=== PATIENT | male | born 1950 | race Caucasian/White ===

== ENCOUNTER 2019-04-16 15:56 | Emergency (ER) | payer MEDICARE, MEDICAID ==
[~2019-04-16] VITALS: Ht 175.3 cm; Wt 81.6 kg
[2019-04-16 16:13] VITALS: BP 167/105
--- NOTE | 2019-04-16 16:38 | ER.PDOC ---
General Chief Complaint: Requesting Medical Care Stated Complaint: BACK PAIN, FEVER Time seen by MD: 16:28 Source: patient, family Exam Limitations: no limitations History of Present Illness Initial Comments Pt not feeling well for several days, concerned about his BP, but, also because he had right sided chest pain, radiating to back. Fever, cough Timing/Duration: 1 week Severity: moderate Activities at Onset: none Prior Episodes/Possible Cause: no prior episodes Modifying Factors: improves with lying down Associated Symptoms: chest pain, cough Allergies: Coded Allergies: No Known Drug Allergies (Verified Allergy, Unknown, 04/16/19) Review of Systems Constitutional: see HPI, fever EENTM: no symptoms reported Respiratory: see HPI Cardiovascular: see HPI Gastrointestinal: no symptoms reported Genitourinary: no symptoms reported Musculoskeletal: no symptoms reported Skin: no symptoms reported Psychiatric/Neurological: no symptoms reported Endocrine: no symptoms reported Hematologic/Lymphatic: no symptoms reported Physical Exam General Appearance: No Apparent Distress, WD/WN HEENT: PERRL/EOMI, Normal ENT Inspection, TMs Normal, Pharynx Normal Neck: Non-Tender, Full Range of Motion, Supple, Normal Inspection Respiratory: chest non-tender, lungs clear, normal breath sounds, no respiratory distress, no accessory muscle use, rhonchi (scattered) Cardiovascular: Normal Peripheral Pulses, No Edema, No Gallop, Irregularly Irregular Gastrointestinal: Normal Bowel Sounds, No Organomegaly, No Pulsatile Mass, Non Tender, Soft, Other (There is significan CVAT on right) Extremities: Normal Range of Motion, Non-Tender, Normal Inspection, No Pedal Edema, No Calf Tenderness, Normal Capillary Refill Neurologic/Psychiatric: ground equipment mechanic II-XII NML as Tested, No Motor/Sensory Deficits, Alert, Normal Mood/Affect, Oriented x 3 Skin: Normal Color, Warm/Dry Lymphatic: No Adenopathy Results/Orders Results/Orders Vital Signs Date Time Temp Pulse Resp B/P (MAP) Pulse Ox O2 Delivery O2 Flow Rate FiO2 04/16/19 19:45 98.3 90 16 170/98 (122) 94 Room Air 04/16/19 18:45 98.3 132 16 171/113 (132) 94 Room Air 04/16/19 16:44 98.3 101 16 167/105 (125) 95 Room Air 04/16/19 16:13 98.3 101 16 04/16/19 16:13 98.3 101 18 95 Room Air Laboratory Tests Test 04/16/19 16:32 04/16/19 16:54 04/16/19 17:15 Blood Gas Sample Site RT BRACIAL ARTERY Blood pH 7.476 (7.350-7.450) Blood Gas PCO2 30.3 mmHg (35.0-45.0) L Blood Gas PO2 69.3 mmHg (80.0-100.0) L Blood Gas HCO3 21.9 mmol/L (22.0-26.0) L Blood Gas Base Excess -0.7 mmol/L (-2.0-2.0) Lauri Test N/A Arterial Blood Oxygen Saturation 94.5 % (94.0-97.00) Deoxyhemoglobin 5.4 % (0.0-5.0) H Carboxyhemoglobin 1.8 % (0.0-3.9) Methemoglobin 0.3 % (0.00-5.0) Total Hemoglobin 14.0 % (12.0-17.8) Total Oxygen Concentration 18.2 % (13.5-17.5) H Lactic Acid (Blood Gas) 1.6 mmol/1 (0.50-2.0) Blood Gas Temperature 37 Oxygen Delivery Method RA FiO2 21 % (20-101) Bicarbonate 22.8 mmol/L (23-27) L White Blood Count 14.4 10^3/uL (4.5-11.0) H Red Blood Count 4.05 10^6/uL (4.50-5.90) L Hemoglobin 13.2 g/dL (13.9-16.3) L Hematocrit 38.4 % (37.0-53.0) Mean Corpuscular Volume 94.8 fL (78-100) Mean Corpuscular Hemoglobin 32.6 pg (26-34) Mean Corpuscular Hemoglobin Concent 34.4 g/dL (33-37) Red Cell Distribution Width 12.8 % (11.5-14.5) Platelet Count 180 10^3/uL (150-400) Mean Platelet Volume 11.2 fL (7.8-11.0) H Neutrophils (%) (Auto) 71.8 % (41.0-85.0) Lymphocytes (%) (Auto) 10.2 % (24.0-44.0) L Monocytes (%) (Auto) 16.6 % (5.0-12.0) H Neutrophils # (Auto) 10.3 10^3/uL (1.8-7.7) H Lymphocytes # (Auto) 1.5 10^3/uL (1.0-4.8) Monocytes # (Auto) 2.4 10^3/uL (0.3-0.8) H Absolute Immature Granulocyte (auto 0.03 10^3 u/L (0-2) Immature Granulocytes % 0.20 % (0.00-0.50) Eosinophils % 0.9 % (0.0-5.0) Basophils % 0.3 % (0.0-0.2) H Basophils # 0.1 10^3/uL (0.0-0.1) Eosinophil Count 0.1 10^3/uL (0.0-0.2) Prothrombin Time 11.2 SEC (9.4-11.5) Prothrombin Time INR (Non-Therap) 1.1 Activated Partial Thromboplast Time 28.5 SEC (24.67-30.72) Sodium Level 139 mmol/L (132-145) Potassium Level 4.1 mmol/L (3.6-5.2) Chloride Level 105.0 mmol/L (96-109) Carbon Dioxide Level 23.4 mmol/L (20.0-32) Anion Gap 14.7 Blood Urea Nitrogen 15 mg/dL (7-18) Creatinine 0.84 mg/dL (0.59-1.40) Estimated GFR () 109.6 (>/=60) BUN/Creatinine Ratio 17.0 Glucose Level 95 mg/dL (70-110) Calcium Level 8.6 mg/dL (8.4-10.5) Total Bilirubin 1.9 mg/dL (0.2-1.0) H Aspartate Amino Transferase (AST) 18 U/L (0-35) Alanine Aminotransferase (ALT) 21 U/L (12-78) Alkaline Phosphatase 108 U/L (50-136) Total Creatine Kinase 83 U/L (39-308) Troponin I < 0.02 ng/mL (0.00-0.05) Pro-B-Type Natriuretic Peptide 2466 pg/mL (0-125) H Total Protein 7.1 g/dL (6.4-8.2) Albumin 3.0 g/dL (3.4-5.0) L Globulin 4.1 Differential Total Cells Counted 100 #CELLS Segmented Neutrophils 75 % (31-76) Lymphocytes 10 % (25-36) L Monocytes 13 % (3-9) H Absolute Eosinophils (Manual) 2 % (1-4) Platelet Estimate ADEQUATE Platelet Morphology NORMAL Blood Morphology Comment NORMAL MORPHOLOGY Progress Progress I assumed care of pt at shift change from Dr Joy , labs and CT noted , will transfer to [facility] @2017 pt accepted @ [facility] by Dr Pedro Saunders EKG/XRAY/CT/US EKG: rhythm (Afib HR 105) XRAY: chest (widened mediastinum ) CT Comments: 4.1 cm Thoracic aneurysm , no disscetion Departure Time of Disposition: 20:23 Disposition: 70 DISC/XFER TO [facility] Impression: Primary Impression: Atrial fibrillation Additional Impression: Thoracic aortic aneurysm without rupture Condition: Stable Referrals: PCP,UNKNOWN (PCP) PRIMARY CARE PROVIDER Duration or Time Spent with Pa: 10 mins Problem Qualifiers Primary Impression: Atrial fibrillation Atrial fibrillation type: unspecified Qualified Codes: I48.91 - Unspecified atrial fibrillation JOVANI JOY MD Apr 16, 2019 16:37 VU MONCADA MD Apr 16, 2019 20:27
[2019-04-16 16:44] VITALS: BP 167/105
--- NOTE | 2019-04-16 16:50 | PCM.EKG ---
[facility] Test Date: 2019-04-16 Test Time: 16:44:55 Pat Name: NADIR DAVIS Department: Patient ID: [facility]-[id number] Room: Gender: M Naturopathic Physician: SHARRI : [id number] Requested By: CHRIS JOY Order Number: [id number] Reading MD: Chris Joy Measurements Intervals [place] Rate: 105 P: SC: QRS: -38 QRSD: 92 T: 14 QT: 304 QTc: 401 Interpretive Statements Atrial fibrillation Left axis deviation Nonspecific ST abnormality, probably digitalis effect Abnormal ECG No previous ECG available for comparison Electronically Signed On 04-16-2019 18:57:37 CDT by Chris Joy Please click the below link to view image of tracing.
[2019-04-16 16:57] LABS: ABG PCO2 30.3 mmHg (35.0-45.0); ABG PH 7.476 (7.350-7.450); BE(B) -0.7 mmol/L (-2.0-2.0); HCO3act 21.9 mmol/L (22.0-26.0); pO2 69.3 mmHg (80.0-100.0)
[2019-04-16 17:03] LABS: BASOPHIL # 0.1 10^3/uL (0.0-0.1); BASOPHIL % 0.3 % (0.0-0.2); EOSINOPHIL # 0.1 10^3/uL (0.0-0.2); EOSINOPHIL % 0.9 % (0.0-5.0); LYMPHOCYTES # 1.5 10^3/uL (1.0-4.8); LYMPHOCYTES % 10.2 % (24.0-44.0); MEAN CORP HGB 32.6 pg (26-34); MONOCYTES # 2.4 10^3/uL (0.3-0.8); MONOCYTES % 16.6 % (5.0-12.0); NEUTROPHIL # 10.3 10^3/uL (1.8-7.7); NEUTROPHILS % 71.8 % (41.0-85.0); RED CELL DISTRIBUTION WIDTH 12.8 % (11.5-14.5)
[2019-04-16 17:33] LABS: ALANINE AMINOTRANSFERASE(ML) 21 U/L (12-78); ALKALINE PHOSPHATASE 108 U/L (50-136); ASPARTATE AMINO TRANSFERASE 18 U/L (0-35); CALCIUM 8.6 mg/dL (8.4-10.5); CARBON DIOXIDE 23.4 mmol/L (20.0-32); GLUCOSE 95 mg/dL (70-110)
--- NOTE | 2019-04-16 17:43 | DIREP ---
PROCEDURE:CHEST 1 VIEW COMPARISON:None. INDICATIONS:Lateral chest pain FINDINGS: LUNGS/PLEURA:Possible atelectasis of the right middle lobe. Small right pleural fluid. No pneumothorax. VASCULATURE:Unremarkable pulmonary vasculature. CARDIAC:No cardiac silhouette abnormality or cardiomegaly. MEDIASTINUM:Widened mediastinum, could be related to tortuosity of the thoracic aorta although underlying aneurysm is not excluded. Atherosclerotic calcifications within the thoracic aorta. BONES:No fracture or visible bony lesion. OTHER:Negative. CONCLUSION: 1. Widened mediastinum, may be related to tortuosity of the thoracic aorta but consider CTA chest (with IV contrast) for further characterization. 2. Small right pleural fluid. 3. Possible atelectasis of the right middle lobe. Dictated by: Linh Enamorado MD on 04/16/2019 at 05:38 PM
--- NOTE | 2019-04-16 18:23 | NUR ---
DISMISSAL PT DISCHARGED IN STABLE CONDITION WITH DAUGHTER. PAIN RATED A 5. PT ABLE TO LIFT ARM AND MOVE IT AROUND. Addendum: 04/16/19 at 1833 by SHAKEEL PREVIOUS NOTE DONE ON WRONG
[2019-04-16 18:45] VITALS: BP 171/113
[2019-04-16 19:14] LABS: EOSINOPHIL 2 % (1-4); LYMPHOCYTE 10 % (25-36); MONOCYTE 13 % (3-9); SEGMENTED NEUTROPHILS 75 % (31-76)
--- NOTE | 2019-04-16 19:20 | DIREP ---
PROCEDURE:CTA CHEST COMPARISON:None. INDICATIONS:Widened mediastinum, CP TECHNIQUE:Post contrast axial images through the chest with multiplanar MIP/3D reconstructions. FINDINGS: PULMONARY ARTERIES:Patent. LUNGS:Mild peripheral ground-glass and interlobular septal thickening may be related to passive atelectasis from the pleural fluid or underlying structural lung disease. CARDIAC:Normal size heart and normal pulmonary vascularity. RV:LV ratio (norm <0.9): Not applicable in the absence of pulmonary embolism. THYROID:Normal. THORACIC AORTA:Ascending aorta is aneurysmal measuring 4.1 cm. The proximal descending thoracic aorta measures 3.1 cm, aneurysmal. Mid descending thoracic aorta measures 2.5 cm and distal descending thoracic aorta measures 2.7 cm. No dissection. MEDIASTINUM:Enlarged paratracheal lymph node measuring 1.3 cm 2/4R, shotty paratracheal lymph nodes 2R/L. Enlarged AP window nodes measuring 1.1 cm. Enlarged sub carinal lymph node measuring 1.5 cm. Right hilar lymph nodes measuring 1 1 cm. PLEURA:Small right pleural fluid. BONES:Normal. OTHER:No additional findings. CONCLUSION: 1. Thoracic aortic aneurysm involving the ascending and proximal descending components. No dissection. 2. Small right pleural fluid. 3. Mediastinal adenopathy. 4. Mild peripheral ground-glass and interlobular septal thickening, as above. Dictated by: Linh Enamorado MD on 04/16/2019 at 07:08 PM
[2019-04-16 19:45] VITALS: BP 170/98
--- NOTE | 2019-04-16 20:15 | NUR ---
[facility] ON PHONE WITH [facility] FOR POSSIBLE TRANSFER
[2019-04-16] MEDS ORDERED: LASIX ONE (20:18)
[2019-04-16] MEDS ORDERED: LOVENOX SQ ONE (20:18)
--- NOTE | 2019-04-16 20:20 | NUR ---
DISPATCH CALLED [facility] FOR EMS TRANSFER
[2019-04-16] MEDS ORDERED: LOVENOX SQ STA (20:24)
[2019-04-16] MEDS ORDERED: LASIX IV STA (20:24)
[2019-04-16 20:45] VITALS: BP 166/88
[2019-04-16 21:10] VITALS: BP 139/95
== END 2019-04-16 21:12 | disposition other institution (70) ==
LOC: ER 15:56
DX: I71.2 Thoracic aortic aneurysm, without rupture (principal); I48.91 Unspecified atrial fibrillation
CPT/HCPCS: 36415; 36600; 71045; 71275; 80053; 82550; 82803; 83880; 84484; 85025; 85610; 85730; 87040 ×2; 93005; 96372; 96374; 99285; J1650; J1940; Q9965

== ENCOUNTER → 2019-10-16 | Outpatient (CLI) | payer MEDICARE, MEDICAID ==
[2019-10-16 12:03] LABS: RED CELL DISTRIBUTION WIDTH 12.1 % (11.5-14.5)
[2019-10-16 12:08] LABS: CALCIUM 8.5 mg/dL (8.4-10.5); CARBON DIOXIDE 27.6 mmol/L (20.0-32)
== END | disposition home or self-care (01) ==
LOC: LAB 09:00
PROVIDERS: ATTEND Internal Medicine
DX: I82.91 Chronic embolism and thrombosis of unspecified vein (principal)
CPT/HCPCS: 36415; 80053; 85027; 87070; 87804; 87880

== ENCOUNTER → 2019-10-17 | Outpatient (CLI) | payer MEDICARE, MEDICAID ==
[2019-10-17 20:32] LABS: BILIRUBIN,URINE NEGATIVE (NEGATIVE)
[2019-10-17 20:33] LABS: APPEARANCE,URINE CLEAR (CLEAR); UA COLOR YELLOW (YELLOW)
== END | disposition home or self-care (01) ==
LOC: NPLAB 20:18
PROVIDERS: ATTEND Internal Medicine
DX: J18.9 Pneumonia, unspecified organism (principal); N39.0 Urinary tract infection, site not specified
CPT/HCPCS: 81000; 87086

== ENCOUNTER → 2021-07-11 | Outpatient (CLI) | payer MEDICARE, MEDICAID ==
[2021-07-11 15:14] LABS: BILIRUBIN,URINE NEGATIVE (NEGATIVE); UROBILINOGEN,URINE 0.2 E.U./dL (0.2)
== END | disposition home or self-care (01) ==
LOC: NPLAB 11:15
PROVIDERS: ATTEND Internal Medicine
DX: N39.0 Urinary tract infection, site not specified (principal)
CPT/HCPCS: 81003; 87086

== ENCOUNTER → 2023-05-13 | Outpatient (CLI) | payer MEDICARE, MEDICAID ==
[2023-05-13 18:07] LABS: HEMATOCRIT(ML) 44.2 % (37.0-53.0); HEMOGLOBIN 14.2 g/dL (13.9-16.3); MEAN CORP HGB 29.6 pg (26-34); MEAN CORP HGB CONCENTRATION 32.1 g/dL (33-36.5); MEAN CORP VOLUME 92.1 fL (78-100); RED BLOOD CELL 4.8 10^6/uL (4.50-5.90); WHITE BLOOD CELL 9.2 10^3/uL (4.5-11.0)
[2023-05-13 18:08] LABS: BILIRUBIN,URINE 1+ (NEGATIVE); LEUKOCYTE ESTERASE ,URINE NEGATIVE (NEGATIVE); NITRATE,URINE NEGATIVE (NEGATIVE); UROBILINOGEN,URINE 0.2 E.U./dL (0.2)
[2023-05-13 18:44] LABS: ALBUMIN(ML) 3.2 g/dL (3.4-5.0); ALBUMIN/GLOBULIN RATIO 0.864; ANION GAP 15.5; BUN/CREATININE RATIO 23.07 (10.0-20.0); CARBON DIOXIDE 27.7 mmol/L (20.0-32); CREATININE SERUM 0.78 mg/dL (0.59-1.40); EST GFR, NON-AA 97.3 (>/=60); POTASSIUM 4.2 mmol/L (3.6-5.2)
[2023-05-13 19:18] LABS: UA COLOR YELLOW
[2023-05-13 19:19] LABS: APPEARANCE,URINE HAZY
== END | disposition home or self-care (01) ==
LOC: NPLAB 17:50
PROVIDERS: ATTEND Internal Medicine
DX: I48.91 Unspecified atrial fibrillation (principal); N39.0 Urinary tract infection, site not specified
CPT/HCPCS: 36415; 80053; 81001; 85027; 87086

== ENCOUNTER → 2023-12-07 | Outpatient (CLI) | payer MEDICARE, MEDICAID ==
[2023-12-07 18:31] LABS: BASOPHIL % 0.3 % (0.0-0.2); EOSINOPHIL # 0.1 10^3/uL (0.0-0.2); EOSINOPHIL % 0.6 % (0.0-5.0); HEMATOCRIT(ML) 45.1 % (37.0-53.0); HEMOGLOBIN 14.1 g/dL (13.9-16.3); LYMPHOCYTES # 1.67 10^3/uL1 (1.0-4.8); LYMPHOCYTES % 13.4 % (24.0-44.0); MEAN CORP HGB 29.1 pg (26-34); MEAN CORP HGB CONCENTRATION 31.3 g/dL (33-36.5); MEAN CORP VOLUME 93.2 fL (78-100); MONOCYTES # 0.9 10^3/uL (0.3-0.8); MONOCYTES % 7.2 % (5.0-12.0); NEUTROPHIL # 9.8 10^3/uL (1.8-7.7); NEUTROPHILS % 78.3 % (41.0-85.0); PLATELET COUNT 275 10^3/uL (150-400); RED BLOOD CELL 4.84 10^6/uL (4.50-5.90); RED CELL DISTRIBUTION WIDTH 13.8 % (11.5-14.5); WHITE BLOOD CELL 12.5 10^3/uL (4.5-11.0)
[2023-12-07 18:33] LABS: +ADD MANUAL DIFF(NO CHRG) NO
[2023-12-07 18:38] LABS: BILIRUBIN,URINE NEGATIVE (NEGATIVE); LEUKOCYTE ESTERASE ,URINE NEGATIVE (NEGATIVE); NITRATE,URINE NEGATIVE (NEGATIVE); UROBILINOGEN,URINE 0.2 E.U./dL (0.2)
[2023-12-07 18:41] LABS: ALBUMIN(ML) 3.4 g/dL (3.4-5.0); ALBUMIN/GLOBULIN RATIO 1.03; ANION GAP 10.9; BUN/CREATININE RATIO 27.52 (10.0-20.0); CALCIUM 9.4 mg/dL (8.4-10.5); CARBON DIOXIDE 30.8 mmol/L (20.0-32); CREATININE SERUM 1.09 mg/dL (0.59-1.40); EST GFR, NON-AA 66.1 (>/=60); POTASSIUM 4.7 mmol/L (3.6-5.2)
[2023-12-07 19:15] LABS: APPEARANCE,URINE CLEAR; UA COLOR YELLOW
== END | disposition home or self-care (01) ==
LOC: LAB 16:58
PROVIDERS: ATTEND Internal Medicine
DX: J42 Unspecified chronic bronchitis (principal); J96.90 Respiratory failure, unspecified, unspecified whether with hypoxia or hypercapnia; N39.0 Urinary tract infection, site not specified
CPT/HCPCS: 36415; 80053; 81001; 85025; 87086